=== PATIENT | female | born 1960 | race Caucasian/White ===

== ENCOUNTER 2017-07-24 08:36 | Observation (INO) | payer SELFPAY ==
[~2017-07-24] VITALS: Ht 165.1 cm; Wt 72.0 kg
[~2017-07-24 08:36] MED LIST: BP MED; OMEP20TA OR
[2017-07-24 08:46] VITALS: BP 154/112; PULSE 148; RESP 28; TEMP 98.6; O2SAT 97
--- NOTE | 2017-07-24 08:58 | PD ---
HPI Chief Complaint: Respiratory Symptoms Time Seen by Provider: 08:51 Travel History International Travel<30 days: No Contact w/Intl Traveler<30days: No Traveled to known affect area: No History of Present Illness HPI 57-year-old female patient with history of asthma, anxiety attacks, presents to the ER today brought in by daughter, apparently her had been diagnosed with influenza and she has been having flulike symptoms for about a week, has been having some shortness of breath, coughing, body aches, and was assumed to have the flu. However, this morning she feels shortness of breath and was having tingling down her left arm and in her face. She came in because of worsening in symptoms. She denies any significant vomiting or diarrhea in the last few days. Modifying Factors: None Associated Signs & Symptoms: Flulike symptoms, paresthesias in the face and left hand Risk Factors: Asthma PFSH Past Medical History Diabetes: No GERD: Yes Hypertension: Yes Tubal Ligation: Yes Past Surgical History Section: Yes Hysterectomy: Yes Social History Alcohol Use: No Tobacco Use: No Substance Use: No Allergies-Medications (Allergen,Severity, Reaction): Coded Allergies: penicillin G (Unverified Allergy, Severe, 07/24/17) vancomycin (Unverified Allergy, Severe, 07/24/17) Reported Meds & Prescriptions Reported Meds & Active Scripts Active Reported Gabapentin 100 Mg Cap 100 Mg PO TID Omeprazole 20 Mg Tab 20 Mg PO DAILY Review of Systems Except as stated in HPI: all other systems reviewed are Neg Physical Exam Narrative GENERAL: Well-developed anxious appearing middle age white female patient currently in mild distress. Awake and oriented 3. SKIN: Focused skin assessment warm/dry. HEAD: Atraumatic. Normocephalic. EYES: Pupils equal and round. No scleral icterus. No injection or drainage. ENT: Mucosa pink and moist. Mild erythema with no exudates. No uvular edema. No uvular, palatal, or tonsillar deviation. Airway patent. NECK: Trachea midline. No JVD. Supple. CARDIOVASCULAR: Regular rate and rhythm. No murmur appreciated. RESPIRATORY: No accessory muscle use. Clear to auscultation. Breath sounds equal bilaterally. GASTROINTESTINAL: Abdomen soft, non-tender, nondistended. Hepatic and splenic margins not palpable. MUSCULOSKELETAL: No obvious deformities. No clubbing. No cyanosis. No edema. NEUROLOGICAL: Awake and alert. No obvious cranial nerve deficits. Motor grossly within normal limits. Normal speech. PSYCHIATRIC: Appropriate mood and affect; insight and judgment normal. Data Data Last Documented VS Vital Signs Date Time Temp Pulse Resp B/P (MAP) Pulse Ox O2 Delivery O2 Flow Rate FiO2 07/24/17 10:56 97.8 89 17 119/81 (94) 99 Room Air Orders Orders Complete Blood Count With Diff (07/24/17 08:51) Basic Metabolic Panel (Bmp) (07/24/17 08:51) Troponin I (07/24/17 08:51) Influenzae A/B Antigen (07/24/17 08:51) Iv Access Insert/Monitor (07/24/17 08:51) Electrocardiogram (07/24/17 08:51) Ecg Monitoring (07/24/17 08:51) Oximetry (07/24/17 08:51) Oxygen Administration (07/24/17 08:51) Chest, Single Ap (07/24/17 08:51) Sodium Chloride 0.9% Flush (Ns Flush) (07/24/17 09:00) D-Dimer (07/24/17 10:46) Us Leg Venous Doppler Bilat (07/24/17 10:46) Sodium Chlor 0.9% 1000 Ml Inj (Ns 1000 M (07/24/17 11:00) Admit Order (Ed Use Only) (07/24/17 11:34) Labs Laboratory Tests Test 07/24/17 09:25 07/24/17 11:07 White Blood Count 7.6 TH/MM3 Red Blood Count 5.29 MIL/MM3 Hemoglobin 17.0 GM/DL Hematocrit 49.0 % Mean Corpuscular Volume 92.6 FL Mean Corpuscular Hemoglobin 32.2 PG Mean Corpuscular Hemoglobin Concent 34.8 % Red Cell Distribution Width 12.9 % Platelet Count 162 TH/MM3 Mean Platelet Volume 10.3 FL Neutrophils (%) (Auto) 55.7 % Lymphocytes (%) (Auto) 32.9 % Monocytes (%) (Auto) 10.4 % Eosinophils (%) (Auto) 0.4 % Basophils (%) (Auto) 0.6 % Neutrophils # (Auto) 4.2 TH/MM3 Lymphocytes # (Auto) 2.5 TH/MM3 Monocytes # (Auto) 0.8 TH/MM3 Eosinophils # (Auto) 0.0 TH/MM3 Basophils # (Auto) 0.0 TH/MM3 CBC Comment DIFF FINAL Differential Comment Blood Urea Nitrogen 16 MG/DL Creatinine 1.18 MG/DL Random Glucose 111 MG/DL Calcium Level 8.0 MG/DL Sodium Level 140 MEQ/L Potassium Level 4.4 MEQ/L Chloride Level 108 MEQ/L Carbon Dioxide Level 24.3 MEQ/L Anion Gap 8 MEQ/L Estimat Glomerular Filtration Rate 47 ML/MIN Troponin I LESS THAN 0.02 NG/ML D-Dimer Quantitative (PE/DVT) 0.49 MG/L [facility] Medical Decision Making Medical Screen Exam Complete: Yes Emergency Medical Condition: Yes Medical Record Reviewed: Yes Interpretation(s) EKG shows sinus tachycardia at a rate of 100 bpm. No signs of acute ST-T changes. Laboratory Tests Test 07/24/17 09:25 Hemoglobin 17.0 GM/DL (11.6-15.3) Hematocrit 49.0 % (35.0-46.0) Monocytes (%) (Auto) 10.4 % (0.0-8.0) Creatinine 1.18 MG/DL (0.50-1.00) Random Glucose 111 MG/DL (74-106) Calcium Level 8.0 MG/DL (8.5-10.1) Chloride Level 108 MEQ/L (98-107) Estimat Glomerular Filtration Rate 47 ML/MIN (>89) Troponin I LESS THAN 0.02 NG/ML Last 24 hours Impressions Chest X-Ray 07/24/17 0851 Signed Impressions: Service Date/Time: Monday, July 24, 2017 09:19 - CONCLUSION: Normal examination. Jaycob Grider MD Differential Diagnosis Anxiety attack versus asthma attack versus pneumonia versus influenza related pneumonitis Narrative Course Chest x-ray did not show any signs of acute pulmonary processes. Influenza testing is negative. EKG does show some tachycardia which is resolving in the ER. She states her symptoms is also resolving in the ER. Lab work did not indicate any signs of significant metabolic issues or cardiac enzymes elevation. D-dimer is negative. At this point, my plan would be to admit the patient for further evaluation of her chest pain. Diagnosis Primary Impression: Atypical chest pain Admitting Information Admitting Physician Requests: Admit Samara Granado MD Jul 24, 2017 08:58
[2017-07-24] MEDS ORDERED: SODIUM CHLORIDE 0.9% FLUSH 10 ML FLUSH IVF PRN (09:00)
[2017-07-24 09:35] VITALS: BP 144/74; PULSE 100; RESP 24; O2SAT 97
[2017-07-24] MEDS ORDERED: GABA100C4 PO (09:36)
[2017-07-24] MEDS ORDERED: OMEP20TA93 PO (09:36)
[2017-07-24 09:47] LABS: AUTOMATED NEUTROPHIL # 4.2 TH/MM3 (1.8-7.7); BASOPHIL % 0.6 % (0.0-2.0); EOSINOPHIL % 0.4 % (0.0-4.0); LYMPH % 32.9 % (9.0-44.0); LYMPHOCYTE # 2.5 TH/MM3 (1.0-4.8); MEAN CELL VOLUME 92.6 FL (80.0-100.0); MEAN CORPUSCULAR HEMOGLOBIN 32.2 PG (27.0-34.0); MEAN CORPUSCULAR HGB CONC 34.8 % (32.0-36.0); MEAN PLATELET VOLUME 10.3 FL (7.0-11.0); MONO % 10.4 % (0.0-8.0); MONOCYTE # 0.8 TH/MM3 (0-0.9); NEUT % 55.7 % (16.0-70.0); PLATELET COUNT 162 TH/MM3 (150-450); RED BLOOD COUNT 5.29 MIL/MM3 (4.00-5.30); RED CELL DISTRIBUTION WIDTH 12.9 % (11.6-17.2); WHITE BLOOD COUNT 7.6 TH/MM3 (4.0-11.0)
--- NOTE | 2017-07-24 09:51 | RADRPT ---
EXAM DATE/TIME: 07/24/2017 09:19 [facility] COMPARISON: No previous studies available for comparison. INDICATIONS : Short of breath, cold like symptoms MEDICAL HISTORY : None. SURGICAL HISTORY : None. ENCOUNTER: Initial ACUITY: 1 day PAIN SCORE: 0/10 LOCATION: Bilateral chest FINDINGS: A single view of the chest demonstrates the lungs to be symmetrically aerated without evidence of mas s, infiltrate or effusion. The cardiomediastinal contours are unremarkable. Osseous structures are intact. CONCLUSION: Normal examination. Jaycob Grider MD on July 24, 2017 at 9:48 Board Certified Radiologist. This report was verified electronically.
[2017-07-24 10:28] LABS: BICARBONATE 24.3 MEQ/L (21.0-32.0); BLOOD UREA NITROGEN 16 MG/DL (7-18); CHLORIDE 108 MEQ/L (98-107); CREATININE 1.18 MG/DL (0.50-1.00); GLOMERULAR FILTRATION RATE 47 ML/MIN (>89); GLUCOSE,RANDOM 111 MG/DL (74-106); SODIUM (NA) 140 MEQ/L (136-145)
[2017-07-24 10:31] LABS: TROPONIN I LESS THAN 0.02 NG/ML (0.02-0.05)
[2017-07-24 10:56] VITALS: BP 119/81; PULSE 89; RESP 17; TEMP 97.8; O2SAT 99
[2017-07-24] MEDS ORDERED: SODIUM CHLOR 0.9% 1000 ML INJ 1,000 ML IV ONE (11:00)
--- NOTE | 2017-07-24 11:20 | EKG ---
Date Performed: 07/24/2017 Time Performed: 09:26:08 PTAGE: 57 years EKG: SINUS TACHYCARDIA POSSIBLE RIGHT VENTRICULAR CONDUCTION DELAY ABNORMAL RHYTHM ECG PREVIOUS TRACING : 03/30/2010 18.10 DOCTOR: Jaycob Hackett Interpretating Date/Time 07/24/2017 11:19:11
[2017-07-24] MEDS ORDERED: ASPIRIN 325 MG TAB PO ONE (11:45)
--- NOTE | 2017-07-24 12:58 | RADRPT ---
EXAM DATE/TIME: 07/24/2017 11:11 [facility] COMPARISON: No previous studies available for comparison. INDICATIONS : Bilateral leg pain. MEDICAL HISTORY : Hypertension. Gastroesophageal reflux disease. Neuropathy. SURGICAL HISTORY : Tubal ligation.Hysterectomy. section.Orthopedic surgery; knees, neck and back. ENCOUNTER: Initial ACUITY: 1 week PAIN SCORE: 10/10 LOCATION: Bilateral leg. TECHNIQUE: Venous ultrasound of the left and right leg was performed from the inguinal ligament to the proximal calf. Real-time, color Doppler and spectral tracing, compression and augmentation techniques were us ed. FINDINGS: RIGHT LEG: There is normal compressibility of the deep venous system from the inguinal region to the proximal ca lf. No echogenic clot is seen in the lumen of the common femoral, femoral, popliteal, and posterior tibial veins. There is a normal response of the venous system to proximal and distal augmentation an d respiration. LEFT LEG: There is normal compressibility of the deep venous system from the inguinal region to the proximal ca lf. No echogenic clot is seen in the lumen of the common femoral, femoral, popliteal, and posterior tibial veins. There is a normal response of the venous system to proximal and distal augmentation an d respiration. CONCLUSION: Normal examination. Jaycob Grider MD on July 24, 2017 at 12:55 Board Certified Radiologist. This report was verified electronically.
[2017-07-24 13:30] VITALS: BP 122/84; PULSE 89; RESP 16; TEMP 97.7; O2SAT 99
--- NOTE | 2017-07-24 13:51 | HHI.HP ---
HPI Primary Care Physician No Primary Care Physician Chief Complaint "My legs hurt." History of Present Illness This is a 57-year-old female with history of GERD and neuropathy in her feet that presents to ED via private vehicle with primary complaint of "my legs hurt. " States she has history of neuropathy in her feet however for the past week her legs have been very painful. The discomfort is throughout her legs. Hurts more when walking. Has not noticed swelling. Denies trauma. Patient also admits to having flulike symptoms for the past week. States that one week ago she began with nonproductive cough myalgias fever and diarrhea. Diarrhea lasted 2 days and has since resolved but has had decreased appetite since. States her also has similar symptoms. When specifically asking she's had discomfort in her chest she then describes a heaviness to the left upper chest that began about 8:30 this morning and is still present at this time about 5-1/2 hours. She also has with it a tingling and numbness sensation down the left arm. Denies nausea with her symptoms. She was short of breath while walking into work and is not sure that is related to the pain in her legs getting so much more intense. States that she has had a stress test in the past but has been maybe 9 years ago and was okay. Review of Systems General: Patient has had fever and has sick contacts. Patient denies chills recent, and recent travel HEENT: Patient denies headache, sore throat, difficulty swallowing. Cardiovascular: Has the chest discomfort as mentioned above. Denies sensation of heart beating rapidly or irregularly. No syncope. Denies diaphoresis. Respiratory: She was short of breath this morning. Denies inspirational chest discomfort. Denies coughing wheezing or hemoptysis. GI: Had diarrhea about a week ago lasting 2 days. Nonbloody. Patient denies nausea, vomiting, abdominal pain, bloody stools. Musculoskeletal: Has had generalized myalgias for the past week. Has had also worsening bilateral lower extremity pains more so the last 2 days. Denies edema in her legs. Neurovascular: Patient denies numbness, tingling, weakness in extremities. Denies headache. Endocrine: Denies polyuria and polydipsia. Hematologic: Denies easy bruising. Skin: Denies rash or itching. Past Family Social History Allergies: Coded Allergies: penicillin G (Unverified Allergy, Severe, 1/17/18) vancomycin (Unverified Allergy, Severe, 07/24/17) Past Medical History Denies hypertension, hyperlipidemia, diabetes, and known CAD. Past Surgical History and hysterectomy. Reported Medications Reported Meds & Active Scripts Active Reported Gabapentin 100 Mg Cap 100 Mg PO TID Omeprazole 20 Mg Tab 20 Mg PO DAILY Active Ordered Medications Current Medications Medications (Trade) Dose Ordered Sig/Abdifatah Route Start Time Stop Time Status Last Admin (NS Flush) 2 ml UNSCH PRN IVF 07/24/17 09:00 07/24/17 10:54 Family History Her father had GA at age 55. Social History Lifetime nonsmoker. Denies alcohol or illicit drugs. She works as a strategic accounts manager. Physical Exam Vital Signs Vital Signs Date Time Temp Pulse Resp B/P (MAP) Pulse Ox O2 Delivery O2 Flow Rate FiO2 07/24/17 10:56 97.8 89 17 119/81 (94) 99 Room Air 07/24/17 09:35 100 24 144/74 (97) 97 Room Air 07/24/17 08:46 98.6 148 28 154/112 (126) 97 Physical Exam GENERAL: This is a well-nourished, well-developed patient, in no apparent distress. Patient speaks in clear complete sentences. Patient is pleasant. HEENT: Head is atraumatic and normocephalic. Neck is supple without lymphadenopathy and trachea is midline. No JVD or carotid bruits. CARDIOVASCULAR: Regular rate and rhythm without murmurs, gallops, or rubs. RESPIRATORY: Clear to auscultation. Breath sounds equal bilaterally. No wheezes , rales, or rhonchi. Chest wall is tender. No use of accessory muscles. GASTROINTESTINAL: Abdomen is nontender, nondistended. Abdomen soft. No obvious pulsatile mass or bruit. No CVA tenderness. Strong femoral pulses bilaterally. Normal bowel sounds in all quadrants. MUSCULOSKELETAL: Patient is moving upper and lower extremities freely. No calf tenderness or edema, no Homans sign. Strong pulses in upper and lower extremities. NEUROLOGICAL: Patient is alert and oriented. Cranial nerves 2-12 are grossly intact. No focal deficits and speech is clear. SKIN: No rash and turgor is normal. Laboratory Laboratory Tests Test 07/24/17 09:25 07/24/17 11:07 White Blood Count 7.6 Red Blood Count 5.29 Hemoglobin 17.0 Hematocrit 49.0 Mean Corpuscular Volume 92.6 Mean Corpuscular Hemoglobin 32.2 Mean Corpuscular Hemoglobin Concent 34.8 Red Cell Distribution Width 12.9 Platelet Count 162 Mean Platelet Volume 10.3 Neutrophils (%) (Auto) 55.7 Lymphocytes (%) (Auto) 32.9 Monocytes (%) (Auto) 10.4 Eosinophils (%) (Auto) 0.4 Basophils (%) (Auto) 0.6 Neutrophils # (Auto) 4.2 Lymphocytes # (Auto) 2.5 Monocytes # (Auto) 0.8 Eosinophils # (Auto) 0.0 Basophils # (Auto) 0.0 CBC Comment DIFF FINAL Differential Comment Blood Urea Nitrogen 16 Creatinine 1.18 Random Glucose 111 Calcium Level 8.0 Sodium Level 140 Potassium Level 4.4 Chloride Level 108 Carbon Dioxide Level 24.3 Anion Gap 8 Estimat Glomerular Filtration Rate 47 Troponin I LESS THAN 0.02 D-Dimer Quantitative (PE/DVT) 0.49 Date/Time Source Procedure Growth Status 07/24/17 09:25 Nasal Washing Influenza Types A,B Antigen ([facility]) - Final NEGATIVE FOR FLU A AND B ANTIGEN.... Complete Result Diagram: 07/24/17 0925 07/24/17 0925 Imaging Last 48 hours Impressions Lower Extremity Ultrasound 07/24/17 1046 Signed Impressions: Service Date/Time: Monday, July 24, 2017 11:11 - CONCLUSION: Normal examination. Jaycob Grider MD Chest X-Ray 07/24/17 0851 Signed Impressions: Service Date/Time: Monday, July 24, 2017 09:19 - CONCLUSION: Normal examination. Jaycob Grider MD Course Initial EKG has sinus tachycardia rate of [address] segment depressions or elevations. Caprini VTE Risk Assessment Caprini VTE Risk Assessment: No/Low Risk (score <= 1) Caprini Risk Assessment Model Point Value = 1 Point Value = 2 Point Value = 3 Point Value = 5 Age 41-60 Minor surgery BMI > 25 kg/m2 Swollen legs Varicose veins or History of unexplained or recurrent spontaneous Oral contraceptives or hormone replacement Sepsis (< 1 month) Serious lung disease, including pneumonia (< 1 month) Abnormal pulmonary function Acute myocardial infarction Congestive heart failure (< 1 month) History of inflammatory bowel disease Medical patient at bed rest Age 61-74 Arthroscopic surgery Major open surgery (> 45 min) Laparoscopic surgery (> 45 min) Malignancy Confined to bed (> 72 hours) Immobilizing plaster cast Central venous access Age >= 75 History of VTE Family history of VTE Factor V Leiden Prothrombin [id number] Lupus anticoagulant Anticardiolipin antibodies Elevated serum homocysteine Heparin-induced thrombocytopenia Other congenital or acquired thrombophilia Stroke (< 1 month) Elective arthroplasty Hip, pelvis, or leg fracture Acute spinal cord injury (< 1 month) Prophylaxis Regimen Total Risk Factor Score Risk Level Prophylaxis Regimen 0-1 Low Early ambulation 2 Moderate Order ONE of the following: *Sequential Compression Device (SCD) *Heparin 5000 units SQ BID 3-4 Higher Order ONE of the following medications: *Heparin 5000 units SQ TID *Enoxaparin/Lovenox 40 mg SQ daily (WT < 150 kg, CrCl > 30 mL/min) *Enoxaparin/Lovenox 30 mg SQ daily (WT < 150 kg, CrCl > 10-29 mL/min) *Enoxaparin/Lovenox 30 mg SQ BID (WT < 150 kg, CrCl > 30 mL/min) AND/OR *Sequential Compression Device (SCD) 5 or more Highest Order ONE of the following medications: *Heparin 5000 units SQ TID (Preferred with Epidurals) *Enoxaparin/Lovenox 40 mg SQ daily (WT < 150 kg, CrCl > 30 mL/min) *Enoxaparin/Lovenox 30 mg SQ daily (WT < 150 kg, CrCl > 10-29 mL/min) *Enoxaparin/Lovenox 30 mg SQ BID (WT < 150 kg, CrCl > 30 mL/min) AND *Sequential Compression Device (SCD) Assessment and Plan Assessment and Plan * Chest pain: Patient will be seen by Dr. Rowley of cardiology and the chest pain center. First troponin is normal. Patient will undergo a Lexiscan and likely be discharged home if her stress test was nonischemic. She should follow -up PCP. Return to ED for interval issues. * Bilateral leg pain: Ultrasound obtained in the ED is negative for DVT. Patient states she is feeling better after getting IV fluids. She should follow -up with PCP. Patient is stable at this time. She is agreeable to this plan. Michele King Jul 24, 2017 13:51
[2017-07-24] MEDS ORDERED: ACETAMINOPHEN/HYDROcodone 325 MG/7.5 MG TAB PO PRN (14:00)
[2017-07-24] MEDS ORDERED: ACETAMINOPHEN 500 MG CPLT PO PRN (14:00)
[2017-07-24] MEDS ORDERED: ONDANSETRON HCL 4 MG/2 ML VIAL IV PUSH PRN (14:00)
[2017-07-24 14:06] VITALS: O2SAT 96
[2017-07-24] MEDS ORDERED: REGADENOSON INJ 0.4 MG/5 ML SYR ONE (15:02)
[2017-07-24] MEDS ORDERED: AMINOPHYLLINE INJ 500 MG/20 ML VIAL ONE (15:29)
--- NOTE | 2017-07-24 16:35 | RADRPT ---
EXAM DATE/TIME: 07/24/2017 14:56 [facility] COMPARISON: CHEST SINGLE AP, July 24, 2017, 9:19. INDICATIONS : Left chest pain. Angina. DOSE: 26 mCi Tc99m Myoview at stress. 8.7 mCi Tc99m Myoview at rest. 0.4 mg Lexiscan STRESS SYMPTOMS: Leg cramps, short of breath and stomach cramps. EJECTION FRACTION: > 70% MEDICAL HISTORY : Hypertension. SURGICAL HISTORY : Tubal ligation. Hysterectomy. Back surgery. ENCOUNTER: Initial ACUITY: 1 day PAIN SCALE: 2/10 LOCATION: Left chest TECHNIQUE: The patient underwent pharmacologic stress with infusion of prescribed dose. Continuous ECG tracing was monitored during stress. Gated SPECT imaging was performed after stress and conventional SPECT i maging was performed at rest. The examination was performed on a SPECT/CT scanner, both attenuation and non-corrected datasets were reviewed. FINDINGS: DISTRIBUTION: The maximum perfused segment at stress is in the anteroseptal wall. PERFUSION STUDY: No definite fixed or reversible perfusion defect is identified. GATED STUDY: There is intact wall motion and thickening without hypokinetic or dyskinetic segments. CONCLUSION: 1. No perfusion abnormality is identified. 2. Normal left ventricle wall motion and ejection fraction. RISK CATEGORY: Low (<1% Annual Mortality Rate) Noel Peña MD on July 24, 2017 at 16:29 Board Certified Radiologist. This report was verified electronically.
--- NOTE | 2017-07-24 16:38 | HHI.DCPOC ---
Discharge Care Plan Diagnosis: (1) Atypical chest pain Goals to Promote Your Health * To prevent worsening of your condition and complications * To maintain your health at the optimal level Directions to Meet Your Goals Take your medications as prescribed Follow your dietary instruction Follow activity as directed Keep your appointments as scheduled Take your immunizations and boosters as scheduled If your symptoms worsen call your PCP, if no PCP go to Urgent Care Center or Emergency Room Smoking is Dangerous to Your Health. Avoid second hand smoke Call the 24-hour hour crisis hotline for domestic abuse at Michele King Jul 24, 2017 16:38
[2017-07-25] MEDS ORDERED: ASPIRIN 325 MG TAB PO SCH (09:00)
--- NOTE | 2017-07-26 12:04 | TR ---
Date Performed: 07/24/2017 Time Performed: 15:17:19 DOCTOR: Lorne Banks DRUG LIST: CLINICAL HISTORY: CHEST PAIN REASON FOR TEST: CHEST PAIN REASON FOR ENDING: OBSERVATION: CONCLUSION: Lexiscan stress test was performed under standard four minute protocol. Radionuclide was injected one minute prior to ending the test. No electrocardiographic abormalities were present to suggest ischemia. Nuclear imaging and interpretation are pending. COMMENTS:
== END 2017-07-24 18:24 | disposition home or self-care (01) ==
LOC: NEPC 08:36 → NEDA 11:36 → NEPFCDU 16:25
PROVIDERS: ADMIT Internal Medicine Cardiovascular Disease; ATTEND Internal Medicine Cardiovascular Disease
DX: R07.89 Other chest pain (principal); I10 Essential (primary) hypertension; R94.31 Abnormal electrocardiogram [ECG] [EKG]; K21.9 Gastro-esophageal reflux disease without esophagitis; F41.1 Generalized anxiety disorder; J45.909 Unspecified asthma, uncomplicated; G62.9 Polyneuropathy, unspecified; M79.604 Pain in right leg; M79.605 Pain in left leg; Z90.710 Acquired absence of both cervix and uterus
CPT/HCPCS: 71045; 78452; 80048; 84484; 85025; 85379; 87804; 93005; 93017; 93970; 96360; 99285; A9502; G0378; J0280; J2785; J7030